=== PATIENT | female | born 1990 | race Two or more races ===

== ENCOUNTER 2020-08-07 06:12 | Inpatient (IN) | payer OTHER ==
[~2020-08-07] VITALS: Ht 152.4 cm; Wt 2.3 kg
[2020-08-07] MEDS ORDERED: PRENATAL TABLE1 EAC1 PO (06:21)
[2020-08-07] MEDS ORDERED: ADULT LOW DOSE81 M1 PO (06:22)
== END 2020-08-10 17:59 | disposition home or self-care (01) | DRG 788 ==
LOC: LDR 06:12 → SURG-SUITE 06:12
PROVIDERS: ADMIT Obstetrics & Gynecology; ATTEND Obstetrics & Gynecology
PROC: 4A1HXFZ Monitoring of Products of Conception, Cardiac Rhythm, External Approach (ICD-10-PCS; 2020-08-07)
PROC: 10D00Z1 Extraction of Products of Conception, Low, Open Approach (ICD-10-PCS; principal; 2020-08-07 18:00)
DX: O61.0 Failed medical induction of labor (principal); O13.4 Gestational [pregnancy-induced] hypertension without significant proteinuria, complicating childbirth; O30.033 Twin pregnancy, monochorionic/diamniotic, third trimester; O90.81 Anemia of the puerperium; D64.9 Anemia, unspecified; Z37.2 Twins, both liveborn; Z3A.36 36 weeks gestation of pregnancy; Z20.822 Contact with and (suspected) exposure to COVID-19